=== PATIENT | female | born 1970 | race American Indian/Alaskan Native ===

== ENCOUNTER 2021-04-26 07:39 | Outpatient (CLI) | payer OTHER ==
--- NOTE | 2021-04-26 09:17 | XRay Report ---
LUMBAR SPINE HISTORY: Back pain. COMPARISON: None. TECHNIQUE: 3 view(s) of the lumbar spine obtained. FINDINGS: Vertebrae: Normal alignment. No fracture or significant abnormality. Disc Spaces:Minimal degenerative change at L4/L5. Facet Joints:[id number]-[id number] degenerative change at L4/L5 and L5/S1. Prevertebral Soft Tissues:No significant abnormality. Additional findings: Postsurgical changes following suspected ventral abdominal wall hernia repair an d cholecystectomy. IMPRESSION: Lumbar spine without evidence of acute osseous injury. Minimal degenerative change at L4/L5 disc space with mild to moderate degenerative change at L4/L5 an d L5/S1. If back pain persists or additional evaluation is clinically indicated, an MRI may be consid ered. Signer Name: Gato Givens MD Signed: 04/26/2021 9:12 AM Workstation Name: [id number]
--- NOTE | 2021-04-26 09:23 | XRay Report ---
CERVICAL SPINE HISTORY: Back pain. COMPARISON: None. TECHNIQUE: 3 view(s) of the cervical spine obtained. FINDINGS: Vertebrae: Slight straightening of the cervical spine, possibly related to patient positioning or mus eri spasm. No acute fracture or vertebral body subluxation. Disc Spaces:Very minimal degenerative change at C5/C6 disc space. Facet Joints:No significant abnormality. Prevertebral Soft Tissues:No significant abnormality. Additional findings: None. IMPRESSION: Cervical spine without evidence of acute osseous injury. Very minimal degenerative change at C5/C6 disc space. Straightening of the cervical spine may represent patient positioning or muscle spasm. Signer Name: Gato Givens MD Signed: 04/26/2021 9:18 AM Workstation Name: [id number]
== END 2021-04-26 07:40 | disposition home or self-care (01) ==
LOC: XRAY 07:39
PROVIDERS: ATTEND Internal Medicine
DX: M47.812 Spondylosis without myelopathy or radiculopathy, cervical region (principal); M47.817 Spondylosis without myelopathy or radiculopathy, lumbosacral region; M51.37 Other intervertebral disc degeneration, lumbosacral region
CPT/HCPCS: 72040; 72100